=== PATIENT | male | born 1995 | race Caucasian/White ===

== ENCOUNTER 2022-01-09 12:53 | Emergency (ER) | payer OTHER ==
[2022-01-09 13:09] VITALS: BP 138/92; PULSE 98; RESP 18; TEMP 98.4
--- NOTE | 2022-01-09 15:15 | XR ---
EXAMINATION TYPE: XR chest 2V DATE OF EXAM: 01/09/2022 COMPARISON: Chest x-ray 07/14/2014 HISTORY: Productive cough, Covid positive TECHNIQUE: Frontal and lateral views of the chest are obtained. FINDINGS: There is no focal air space opacity, pleural effusion, or pneumothorax seen. The cardiac silhouette size is within normal limits. There is some bronchial wall thickening. The osseous struct ures are intact. IMPRESSION: Correlate for bronchitis, reactive airways disease, follow-up as indicated
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
== END 2022-01-09 15:55 | disposition home or self-care (01) ==
LOC: EC 12:53
DX: U07.1 COVID-19 (principal); F17.209 Nicotine dependence, unspecified, with unspecified nicotine-induced disorders
CPT/HCPCS: 71046; 87635; 99284